=== PATIENT | female | born 2000 | race Caucasian/White ===

== ENCOUNTER 2024-05-18 09:55 | Emergency (ER) | payer OTHER ==
[~2024-05-18] VITALS: Ht 160 cm; Wt 63.5 kg
[~2024-05-18 09:55] MED LIST: HYDR-4209 PO
[2024-05-18 10:12] VITALS: BP 129/75; TEMP 98.1; O2SAT 98
== END 2024-05-18 11:11 | disposition left against medical advice (07) ==
LOC: ER 09:55
DX: R11.10 Vomiting, unspecified (principal); Z53.21 Procedure and treatment not carried out due to patient leaving prior to being seen by health care provider